=== PATIENT | female | born 1930 | race Caucasian/White ===

== ENCOUNTER 2017-08-20 09:12 | Emergency (ER) | payer MEDICARE ==
[~2017-08-20] VITALS: Ht 165.1 cm; Wt 80.0 kg
[2017-08-20 09:13] VITALS: Ht 165.1 cm; Wt 80.0 kg
[2017-08-20 09:25] VITALS: BP 107/70
[2017-08-20 10:40] LABS: PLATELET COUNT 153 x10^3mcL (130-400)
[2017-08-20 10:41] LABS: RED CELL DISTRIBUTION WIDTH 16.4 % (11.5-14.5)
[2017-08-20 10:49] LABS: CALCIUM 7.3 mg/dL (8.5-10.1); CARBON DIOXIDE 24.8 mmol/L (21-32); CHLORIDE SERUM 104 mmol/L (98-107); GLUCOSE SERUM 227 mg/dL (74-106); POTASSIUM SERUM 3.4 mmol/L (3.5-5.1); SODIUM SERUM 139 mmol/L (136-145)
[2017-08-20 10:59] LABS: ALKALINE PHOSPHATASE 278 U/L (46-116); BILIRUBIN TOTAL 0.9 mg/dL (0.20-1.00)
[2017-08-20 11:02] LABS: ALBUMIN 2.1 g/dL (3.4-5.0); ALT/SGPT 1794 U/L (14-59); CHOLESTEROL 97 mg/dL (<200)
[2017-08-20 11:36] LABS: AST/SGOT 3367 U/L (15-37)
[2017-08-20 11:49] LABS: BAND NEUTROPHIL 20 % (0-10); BASOPHIL 0 % (0-2); MONOCYTE 10 % (0-7); SEGMENTED NEUTROPHILS 46 % (37-75)
== END 2017-08-20 13:21 | disposition expired ==
LOC: ED 09:12
PROVIDERS: Specialist
DX: I46.9 Cardiac arrest, cause unspecified (principal); I10 Essential (primary) hypertension; E11.9 Type 2 diabetes mellitus without complications
CPT/HCPCS: 31500; 83880; G0480; J7030; Q0092